=== PATIENT | female | born 1980 | race Caucasian/White ===

== ENCOUNTER 2016-08-27 09:54 | Emergency (ER) ==
[2016-08-27 10:02] VITALS: BP 134/84; TEMP 98.9; BMI 31.7
[2016-08-27] MEDS ORDERED: MOTRIN PO STA (10:13)
--- NOTE | 2016-08-27 10:14 | ED.PDOC ---
General ED Provider: Dr. ROJAS CEJA Chief Complaint: Ankle Pain/Injury Stated Complaint: patient state that while she was on steps yelling at dog she slipped falling and injuring her ankle. she is not able to bear weight. Time Seen by Physician: 10:13 Mode of Arrival: Wheelchair Information Source: Patient Exam Limitations: No limitations Primary Care Provider: ASHANTI PICKENS Nursing and Triage Documentation Reviewed and Agree: Yes Musculoskeletal Complaint Exam - Ankle/Foot Complaint/Exam Location of Injury: Reports: Right, Ankle Mechanism of Injury: Reports: Trauma (twisting injury ) Onset/Duration: just prior to arrival Symptoms Are: Reports: Still present Onset of Pain: Reports: Immediate Initial Severity: Severe Current Severity: Severe Location: Reports: Discrete (right Lateral malleolus ) Character: Reports: Aching, Throbbing Alleviating: Reports: None Aggravating: Reports: Movement, Weight bearing, Prolonged standing Able to Bear Weight: No Associated Signs and Symptoms: Reports: Swelling Gout Risk Factors: Reports: None Related Surgical History: Reports: None Lower Extremity Findings: Present: Swelling Achilles Tendon Abnormality: No Tenderness: Present: Lateral malleolus. Absent: Heel, Achilles insertion, Midfoot Limited Range of Motion: Present: Inversion, Eversion, Dorsiflexion, Plantarflexion Ankle/Foot Picture: 1 - Tenderness with swelling Differential Diagnosis: Closed Fracture, Sprain, Strain Review of Systems - Review Of Systems Constitutional: Reports: No symptoms Eyes: Reports: No symptoms Ears, Nose, Mouth, Throat: Reports: No symptoms Respiratory: Reports: No symptoms Cardiac: Reports: No symptoms GI: Reports: No symptoms : Reports: No symptoms Musculoskeletal: Reports: Joint pain, Joint swelling Skin: Reports: No symptoms Neurological: Reports: Anxiety Endocrine: Reports: No symptoms Hematologic/Lymphatic: Reports: No symptoms All Other Systems: Reviewed and Negative Past Medical History - Past Medical History Endocrine: Reports: Unknown Cardiovascular: Reports: Unknown Respiratory: Reports: Unknown Hematological: Reports: Unknown Gastrointestinal: Reports: Unknown Genitourinary: Reports: Unknown Neuro/Psych: Reports: Unknown Musculoskeletal: Reports: Unknown Cancer: Reports: Unknown Last Menstrual Period: april 2016 - Surgical History General Surgical History: Reports: Unknown - Family History Family History: Reports: Unknown - Social History Smoking Status: Former smoker Hx Substance Use: No Alcohol Screening: None Physical Exam - Physical Exam Appearance: Ill-appearing Ill-appearing: Mild Pain Distress: Severe Eyes: ANNE MARIE, EOMI, Conjunctiva clear ENT: Ears normal, Nose normal, Oropharynx normal Neck: Supple Respiratory: Airway patent, Breath sounds clear, Breath sounds equal, Respirations nonlabored Cardiovascular: RRR, Pulses normal, No rub, No murmur GI/: Soft, Nontender, No masses, Bowel sounds normal, No Organomegaly Musculoskeletal: Normal strength, ROM intact, No edema, No calf tenderness Skin: Warm Neurological: Sensation intact, Motor intact, Reflexes intact, Cranial nerves intact, Alert, Oriented Psychiatric: Anxious Interpretation - Radiology Interpretation Radiology Interpretation By: Radiologist Radiology Results: Positive (Right mildly displaced distal fibular fracture) Exam Interpreted: Other (right ankle ) Critical Care Note - Critical Care Note Total Time (mins): 0 Course - Course Orders, Labs, Meds: Orders Category Date Time Status CRUTCHES [ED CRUTCHES] .ONCE EMERGENCY 08/27/16 10:53 Active ED YESICA WRAP .ONCE EMERGENCY 08/27/16 10:53 Active Ibuprofen [Motrin] MEDS 08/27/16 10:13 Discontinued 800 mg PO ONCE STA ANKLE, RIGHT MIN 3 VIEWS Stat RADS 08/27/16 10:13 Completed Medications Discontinued Medications Generic Name Dose Route Start Last Admin Trade Name Freq PRN Reason Stop Dose Admin Ibuprofen 800 mg 08/27/16 10:13 08/27/16 10:31 Motrin PO 08/27/16 10:14 800 mg ONCE STA Administration Vital Signs: Temp Pulse Resp BP Pulse Ox 08/27/16 09:54 98.9 F 102 H 18 134/84 98 Departure - Departure Time of Disposition: 10:43 Disposition: HOME SELF-CARE Discharge Problem: Closed right fibular fracture Instructions: Ankle Fracture (ED) Condition: Fair Pt referred to PMD for follow-up: Yes Additional Instructions: Follow up with Orthopedics next week Take medications as prescribed No weight bearing on the right ankle Use air cast until seen by your PCP Prescriptions: Hydrocodone/Acetaminophen [[place] 5-325 Tablet] 1 tab PO Q6HR PRN #20 tablet PRN Reason: PAIN Ibuprofen [Motrin] 600 mg PO Q6H PRN #30 tablet PRN Reason: Analgesia Allergies/Adverse Reactions: Allergies azithromycin Adverse Reaction (Verified 08/27/16 09:59) Rash codeine Adverse Reaction (Verified 08/27/16 09:59) Vomiting Latex, Natural Rubber Adverse Reaction (Verified 08/27/16 09:59) Difficulty Breathing If prolonged, states "has trouble breathing". If short period, gets a rash. Home Medications: Ambulatory Orders Lisinopril 10 mg PO DAILY 07/27/16 Pantoprazole Sodium [Protonix] 40 mg PO DAILY #30 tablet. 08/01/16 Hydrocodone/Acetaminophen [[place] 5-325 Tablet] 1 tab PO Q6HR PRN #20 tablet Ibuprofen [Motrin] 600 mg PO Q6H PRN #30 tablet 08/27/16 Disposition Discussed With: Patient, Family
--- NOTE | 2016-08-27 10:31 | DI ---
EXAM: Three views of the right ankle. History: Right ankle trauma and swelling. Findings: Mildly displaced oblique fracture through the distal right fibular shaft near the joint l ine. No dislocation. Ankle mortise does appear to be intact. Joint spaces are preserved. There i s an ankle joint effusion. Impression: Mildly displaced distal right fibular fracture.
== END 2016-08-27 11:07 | disposition home or self-care (01) ==
LOC: ED 09:54
DX: S82.831A Other fracture of upper and lower end of right fibula, initial encounter for closed fracture (principal); W10.9XXA Fall (on) (from) unspecified stairs and steps, initial encounter
CPT/HCPCS: 99283

== ENCOUNTER 2016-10-29 05:08 | Emergency (ER) ==
[2016-10-29 05:24] VITALS: BMI 30.5
[2016-10-29] MEDS ORDERED: ZOFRAN 4 MG/2 ML IVP STA (05:28)
[2016-10-29] MEDS ORDERED: SODIUM CHLORIDE 1,000 ML IV STA ×2 (05:28→06:54)
[2016-10-29] MEDS ORDERED: DEMEROL 25 MG/ML SYRINGE IVP STA (05:28)
--- NOTE | 2016-10-29 05:32 | ED.PDOC ---
General Stated Complaint: hurting for couple days, got worsetoday morning, had 1 episode of vomiting. patient was in hospital july for the Pancreatitis. Patient was taking Bactrim for the rt leg infection. Time Seen by Physician: 05:30 Mode of Arrival: Walk-In Information Source: Patient Nursing and Triage Documentation Reviewed and Agree: Yes <DEEDEE HATCH - Last Filed: 10/29/16 06:55> <MILLIE KENT - Last Filed: 10/29/16 07:20> ED Provider: Dr. MILLIE KENT Chief Complaint: Abdominal Pain Primary Care Provider: ASHANTI PICKENS GI Complaint Exam - Abdominal Pain Complaint/Exam Onset: Gradual Symptoms Are: Still present Timing: Constant Initial Severity: Severe Current Severity: Severe Location of Pain: Discrete Character: Reports: Aching, Throbbing Aggravating: Reports: Movement, Food Alleviating: Reports: None Associated Signs and Symptoms: Reports: Nausea, Vomiting, Decreased activity. Denies: Diaphoresis, Fever, Cough, Chest pain, Dizziness, Back pain, Constipation, Blood in stool, Dysuria, Urinary frequency, Decreased urine output , Decreased appetite, Vaginal bleeding, Vaginal discharge, Diarrhea, Sore throat Related History: Reports: Similar episode AAA Risk Factors: Reports: None Cardiac Risk Factors: Reports: None Ectopic Risk Factors: Reports: None Ovarian Torsion Risk Factors: Reports: None Surgical Obstruction Risk Factors: Reports: None Related Surgical History: Reports: None Abdominal Findings: Absent: Pulsatile mass, Abdominal distention, Unequal femoral pulses Differential Diagnoses: Hepatitis, Pancreatitis, GB, PUD <DEEDEE HATCH - Last Filed: 10/29/16 06:55> Review of Systems - Review Of Systems Constitutional: Reports: Malaise, Weakness Eyes: Reports: No symptoms Ears, Nose, Mouth, Throat: Reports: No symptoms Respiratory: Reports: No symptoms Cardiac: Reports: No symptoms GI: Reports: Abdominal pain, Vomiting : Reports: No symptoms Musculoskeletal: Reports: No symptoms Skin: Reports: No symptoms Neurological: Reports: No symptoms Endocrine: Reports: No symptoms Hematologic/Lymphatic: Reports: No symptoms All Other Systems: Reviewed and Negative <DEEDEE HATCH - Last Filed: 10/29/16 06:55> Past Medical History - Past Medical History Previously Healthy: No Endocrine: Reports: None Cardiovascular: Reports: Hypertension Respiratory: Reports: None Hematological: Reports: None Gastrointestinal: Reports: Pancreatitis Genitourinary: Reports: None Neuro/Psych: Reports: None Musculoskeletal: Reports: None Cancer: Reports: None Last Menstrual Period: end August, - Surgical History General Surgical History: Reports: Tubal ligation, Orthopedic (rt leg surgery), Other (cyst removed from the left breast.) - Family History Family History: Reports: Unknown - Social History Smoking Status: Former smoker Hx Substance Use: No Alcohol Screening: None - Immunizations Tetanus Shot up to Date: Yes <DEEDEE HATCH - Last Filed: 10/29/16 06:55> Physical Exam - Physical Exam Appearance: Ill-appearing, Obese Ill-appearing: Moderate Pain Distress: Severe Eyes: ANNE MARIE, EOMI, Conjunctiva clear ENT: Ears normal, Nose normal, Oropharynx normal Respiratory: Airway patent, Breath sounds clear, Breath sounds equal, Respirations nonlabored Cardiovascular: RRR, Pulses normal, No rub, No murmur GI/: Tender, Bowel sounds hypoactive Musculoskeletal: Normal strength, ROM intact, No edema, No calf tenderness Skin: Warm, Dry, Normal color Neurological: Sensation intact, Motor intact, Reflexes intact, Cranial nerves intact, Alert, Oriented Psychiatric: Affect appropriate, Mood appropriate <DEEDEE HATCH - Last Filed: 10/29/16 06:55> Physician Notification - Case Discussed Physician Notified: pmd Time of Notification: 07:19 (transfer to [facility]) <MILLIE KENT - Last Filed: 10/29/16 07:20> Critical Care Note - Critical Care Note Total Time (mins): 0 <DEEDEE HATCH - Last Filed: 10/29/16 06:55> Course - Course Hematology/Chemistry: 10/29/16 05:45 10/29/16 05:45 <DEEDEE HATCH - Last Filed: 10/29/16 06:55> - Course Hematology/Chemistry: 10/29/16 05:45 10/29/16 05:45 <MILLIE KENT - Last Filed: 10/29/16 07:20> - Course Orders, Labs, Meds: Lab Review 10/29/16 05:45 WBC 9.36 RBC 4.55 Hgb 14.9 Hct 42.6 MCV 93.6 MCH 32.7 H MCHC 35.0 RDW Coeff of Tonya 15.8 H Plt Count 243 Immature Gran % (Auto) 0.3 Neut % (Auto) 84.3 Lymph % (Auto) 12.0 [place] % (Auto) 2.6 Eos % (Auto) 0.5 Baso % (Auto) 0.3 Immature Gran # (Auto) 0.0 Neut # 7.9 H Lymph # 1.1 [place] # 0.2 L Eos # 0.1 Baso # 0.0 Sodium 136 Potassium 4.5 Chloride 101 Carbon Dioxide 20 L Anion Gap 19.5 BUN 18 Creatinine 2.21 H Estimated GFR (MDRD) 25.00 BUN/Creatinine Ratio 8.14 Glucose 121 H Calcium 9.1 Total Bilirubin 0.92 AST 51 H ALT 24 Alkaline Phosphatase 146 H Total Protein 7.5 Albumin 4.0 Globulin 3.5 Albumin/Globulin Ratio 1.14 Amylase 356 H Lipase 734 H Serum , Qual Negative Plasma/Serum Alcohol < 10.0 Orders Category Date Time Status ED IV/MEDIPORT/POWERPORT .ONCE EMERGENCY 10/29/16 05:28 Active AMYLASE Stat LAB 10/29/16 05:45 Completed BLOOD ALCOHOL Stat LAB 10/29/16 05:45 Completed CBC W/ AUTO DIFF Stat LAB 10/29/16 05:45 Completed COMPREHENSIVE METABOLIC PANEL Stat LAB 10/29/16 05:45 Completed LIPASE Stat LAB 10/29/16 05:45 Completed SERUM Stat LAB 10/29/16 05:45 Completed URINALYSIS C & S IF INDICATED Stat LAB 10/29/16 05:28 Uncollected URINE DRUG SCREEN (RAPID FOR ED) [DRUG SCREEN, URINE, LAB 10/29/16 05:38 Uncollected RAPID] Stat 0.9 % Sodium Chloride [Saline Flush] MEDS 10/29/16 05:28 Active 1 syr IVF PRN PRN Hydromorphone HCl/Pf [Dilaudid 2 mg/ml Syringe] MEDS 10/29/16 06:54 Discontinued 2 mg IVP ONCE STA Meperidine HCl/Pf [Demerol 25 mg/ml Syringe] MEDS 10/29/16 05:28 Discontinued 25 mg IVP ONCE STA Ondansetron HCl/Pf [Zofran 4 mg/2 ml] MEDS 10/29/16 05:28 Discontinued 4 mg IVP ONCE STA Sodium Chloride 0.9% [Sodium Chloride] 1,000 ml MEDS 10/29/16 06:54 Active IV 125 mls/hr Sodium Chloride 0.9% [Sodium Chloride] 1,000 ml MEDS 10/29/16 05:[address] ABDOMEN/PELVIS WO CONTRAST Stat RADS 10/29/16 05:28 Completed Medications Generic Name Dose Route Start Last Admin Trade Name Freq PRN Reason Stop Dose Admin Sodium Chloride 1,000 mls @ 125 mls/hr 10/29/16 06:54 10/29/16 07:02 Sodium Chloride IV 10/29/16 14:53 125 mls/hr .Q8H STA Administration Sodium Chloride 1 syr 10/29/16 05:28 10/29/16 05:52 Saline Flush IVF 1 syr PRN PRN Administration To flush IV Discontinued Medications Generic Name Dose Route Start Last Admin Trade Name Freq PRN Reason Stop Dose Admin Hydromorphone HCl 2 mg 10/29/16 06:54 10/29/16 07:06 Dilaudid 2 Mg/Ml Syringe IVP 10/29/16 06:55 2 mg ONCE STA Administration Sodium Chloride 1,000 mls @ 1,000 mls/hr 10/29/16 05:28 10/29/16 05:46 Sodium Chloride IV 10/29/16 06:27 1,000 mls/hr BOLUS STA Administration Meperidine HCl 25 mg 10/29/16 05:28 10/29/16 05:48 Demerol 25 Mg/Ml Syringe IVP 10/29/16 05:29 25 mg ONCE STA Administration Ondansetron HCl 4 mg 10/29/16 05:28 10/29/16 05:47 Zofran 4 Mg/2 Ml IVP 10/29/16 05:29 4 mg ONCE STA Administration Vital Signs: Temp Pulse Resp BP Pulse Ox 10/29/16 05:38 97.4 F L 81 22 112/80 100 10/29/16 05:35 98/60 10/29/16 05:10 98.5 F 106 H 20 88/61 L 97 Departure - Departure Pt referred to PMD for follow-up: Yes Disposition Discussed With: Patient, Family <DEEDEE HATCH - Last Filed: 10/29/16 06:55> - Departure Time of Disposition: 07:19 Pt referred to PMD for follow-up: Yes Disposition Discussed With: Patient, Family <MILLIE KENT - Last Filed: 10/29/16 07:20> - Departure Disposition: TSF SHORT-TRM HOSP Discharge Problem: Pancreatitis Qualifiers: Chronicity: acute Pancreatitis type: other Acute pancreatitis complication: uninfected necrosis Qualifier Code: (K85.81) Other acute pancreatitis with uninfected necrosis Instructions: Pancreatitis (ED) Condition: Stable Allergies/Adverse Reactions: Allergies azithromycin Adverse Reaction (Verified 10/29/16 05:24) Rash codeine Adverse Reaction (Verified 10/29/16 05:24) Vomiting Latex, Natural Rubber Adverse Reaction (Verified 10/29/16 05:24) Difficulty Breathing If prolonged, states "has trouble breathing". If short period, gets a rash. Home Medications: Ambulatory Orders Lisinopril 10 mg PO DAILY 07/27/16
[2016-10-29 05:51] LABS: BASOPHILS % (AUTO) 0.3 % (0.0-3.0); EOSINOPHILS # (AUTO) 0.1 K/ul (0.0-0.7); EOSINOPHILS % (AUTO) 0.5 % (0.0-7.0); HEMATOCRIT 42.6 % (37.0-47.0); HEMOGLOBIN 14.9 g/dl (12.0-16.0); IMMATURE GRANULOCYTE % (AUTO) 0.3 % (0.0-5.0); LYMPHOCYTES # (AUTO) 1.1 K/uL (0.60-3.4); MEAN CORPUSCULAR HEMOGLOBIN 32.7 pg (27.0-31.0); MEAN CORPUSCULAR VOLUME 93.6 fl (81.0-99.0); MONOCYTES # (AUTO) 0.2 K/uL (0.4-2.0); MONOCYTES % (AUTO) 2.6 (0-10); NEUTROPHILS # (AUTO) 7.9 K/ul (2.0-6.9); NEUTROPHILS % (AUTO) 84.3; PLATELET COUNT 243 10^3/uL (140-440); RED BLOOD COUNT 4.55 10^6/ul (4.20-5.40); WHITE BLOOD COUNT 9.36 K/ul (4.6-10.2)
[2016-10-29 06:19] LABS: SERUM PREGNANCY INTERNAL QC INTERNAL QC VALID
[2016-10-29 06:32] LABS: ALBUMIN/GLOBULIN RATIO 1.14; ANION GAP 19.5; BILIRUBIN,TOTAL 0.92 mg/dL (0.00-1.20); BUN/CREATININE RATIO 8.14; CALCIUM 9.1 mg/dL (8.2-10.2); CREATININE 2.21 mg/dL (0.60-1.30); POTASSIUM 4.5 mmol/L (3.5-5.10); TOTAL PROTEIN 7.5 g/dL (6.4-8.2)
[2016-10-29] MEDS ORDERED: DILAUDID 2 MG/ML SYRINGE IVP STA (06:54)
--- NOTE | 2016-10-29 06:59 | CT ---
Exam: CT of the abdomen and pelvis without contrast History: Abdominal pain with prior pancreatitis Technique: [address] of the abdomen and pelvis without intravascular contrast FINDINGS: Prior study not available for comparison. Left lower lobe granulomatous calcification. The lung bases are clear otherwise. The liver density slightly decreased measuring 36 HU. The gall bladder appears normal. Mild peripancreatic inflammation with mild retroperitoneal fluid mostly on the left. The spleen and adrenal glands appear normal. Kidneys and proximal collecting system are u nremarkable. The appendix is normal. Bowel loops demonstrate normal caliber. Vascular structures [place] ear normal by noncontrast CT.. Pelvic genitourinary structures appear normal. Pelvic bowel loops are unremarkable. No inflammatory change in the pelvic fat. No acute abnormality of the abdominal or pelvic skeleton. Impression: 1. Peripancreatic inflammation and small retroperitoneal fluid consistent acute pancreatitis. Infl ammatory changes are generally mild at this time. There is no pseudocyst. 2. Liver steatosis
[2016-10-29 07:05] VITALS: BP 112/80; TEMP 97.4
[2016-10-29] MEDS ORDERED: DILAUDID 1 MG/ML SYRINGE IVP STA (07:23)
== END 2016-10-29 08:10 | disposition short-term general hospital (02) ==
LOC: ED 05:08
DX: K85.81 Other acute pancreatitis with uninfected necrosis (principal)
CPT/HCPCS: 36415; 80053; 80307; 82150; 83690; 84703; 85025; 96361; 96374; 96375; 99285

== ENCOUNTER 2016-10-29 08:14 | Outpatient (CLI) ==
[2016-10-29 05:24] VITALS: BMI 30.5
== END 2016-10-29 08:15 ==
LOC: AMBL 08:14
PROVIDERS: ATTEND Internal Medicine
DX: K85.90 Acute pancreatitis without necrosis or infection, unspecified (principal)

== ENCOUNTER 2016-12-16 14:53 | Outpatient (CLI) ==
[2016-12-16 17:34] LABS: BASOPHILS % (AUTO) 0.8 % (0.0-3.0); EOSINOPHILS # (AUTO) 0.4 K/ul (0.0-0.7); EOSINOPHILS % (AUTO) 7.9 % (0.0-7.0); HEMATOCRIT 41.3 % (37.0-47.0); HEMOGLOBIN 14.1 g/dl (12.0-16.0); IMMATURE GRANULOCYTE % (AUTO) 0.2 % (0.0-5.0); LYMPHOCYTES # (AUTO) 1.8 K/uL (0.60-3.4); LYMPHOCYTES % (AUTO) 34.8 (10.0-50.0); MEAN CORPUSCULAR HEMOGLOBIN 33.7 pg (27.0-31.0); MEAN CORPUSCULAR HGB CONC 34.1 (31.8-35.4); MEAN CORPUSCULAR VOLUME 98.6 fl (81.0-99.0); MONOCYTES # (AUTO) 0.2 K/uL (0.4-2.0); MONOCYTES % (AUTO) 4.5 (0-10); NEUTROPHILS # (AUTO) 2.6 K/ul (2.0-6.9); NEUTROPHILS % (AUTO) 51.8; PLATELET COUNT 267 10^3/uL (140-440); RED BLOOD COUNT 4.19 10^6/ul (4.20-5.40); WHITE BLOOD COUNT 5.09 K/ul (4.6-10.2)
[2016-12-16 17:54] LABS: ALBUMIN 3.6 g/dL (3.4-5.0); ALBUMIN/GLOBULIN RATIO 0.9; ANION GAP 15.8; BILIRUBIN,TOTAL 0.71 mg/dL (0.00-1.20); BUN/CREATININE RATIO 7.14; CALCIUM 8.6 mg/dL (8.2-10.2); CHOL/HDL RATIO 3.6 (4.5-5.5); CREATININE 0.7 mg/dL (0.60-1.30); POTASSIUM 3.8 mmol/L (3.5-5.10); TOTAL PROTEIN 7.6 g/dL (6.4-8.2)
== END 2016-12-16 14:54 | disposition home or self-care (01) ==
LOC: LAB 14:53
PROVIDERS: ATTEND Nurse Practitioner Family
DX: Z00.00 Encounter for general adult medical examination without abnormal findings (principal)
CPT/HCPCS: 36415; 80053; 80061; 82150; 83036; 83690; 85025

== ENCOUNTER 2016-12-23 10:21 | Outpatient (CLI) | END 2016-12-23 10:22 | disposition home or self-care (01) | LOC: LAB 10:21 | PROVIDERS: ATTEND Nurse Practitioner Family | DX: R74.8 Abnormal levels of other serum enzymes (principal) | CPT/HCPCS: 36415; 80074 ==

== ENCOUNTER 2017-02-02 02:40 | Inpatient (IN) ==
[2017-02-02] MEDS ORDERED: ZOFRAN 4 MG/2 ML IM STA (03:21)
[2017-02-02] MEDS ORDERED: DEMEROL 25 MG/ML SYRINGE IM STA (03:21)
--- NOTE | 2017-02-02 03:24 | ED.PDOC ---
General ED Provider: Dr. DEEDEE HATCH Chief Complaint: Abdominal Pain Stated Complaint: Been hurting in the upper belly, had h/o pancreatitis , nausea no vomitings. not drinking ETOH lately. Time Seen by Physician: 03:22 Mode of Arrival: Walk-In Information Source: Patient Primary Care Provider: ASHANTI PICKENS Nursing and Triage Documentation Reviewed and Agree: Yes GI Complaint Exam - Abdominal Pain Complaint/Exam Onset: Gradual Symptoms Are: Still present Timing: Constant Initial Severity: Moderate Current Severity: Severe Location of Pain: Epigastric Radiates To: Reports: Back Character: Reports: Dull, Aching Aggravating: Reports: Movement, Food Alleviating: Reports: None Associated Signs and Symptoms: Reports: Nausea. Denies: Diaphoresis, Fever, Cough, Chest pain, Dizziness, Back pain, Constipation, Blood in stool, Dysuria, Urinary frequency, Decreased urine output, Decreased appetite, Vaginal bleeding , Vaginal discharge, Vomiting, Diarrhea, Sore throat, Decreased activity Related History: Reports: Similar episode AAA Risk Factors: Reports: None Cardiac Risk Factors: Reports: None Ectopic Risk Factors: Reports: None Abdominal Findings: Absent: Pulsatile mass, Abdominal distention, Unequal femoral pulses, Rebound tenderness, Peritoneal signs Differential Diagnoses: Pancreatitis, PUD Review of Systems - Review Of Systems Constitutional: Reports: Malaise, Weakness Eyes: Reports: No symptoms Ears, Nose, Mouth, Throat: Reports: No symptoms Respiratory: Reports: No symptoms Cardiac: Reports: No symptoms GI: Reports: Abdomen distended, Abdominal pain : Reports: No symptoms Musculoskeletal: Reports: No symptoms Skin: Reports: No symptoms Neurological: Reports: No symptoms Endocrine: Reports: No symptoms Hematologic/Lymphatic: Reports: No symptoms All Other Systems: Reviewed and Negative Past Medical History - Past Medical History Previously Healthy: No Endocrine: Reports: None Cardiovascular: Reports: Hypertension Respiratory: Reports: None Hematological: Reports: None Gastrointestinal: Reports: Pancreatitis Genitourinary: Reports: None Neuro/Psych: Reports: None Musculoskeletal: Reports: None Cancer: Reports: None Last Menstrual Period: IRREGULAR - Surgical History General Surgical History: Reports: Tubal ligation, Orthopedic (rt leg surgery), Other (cyst removed from the left breast.) - Family History Family History: Reports: Unknown - Social History Smoking Status: Former smoker Hx Substance Use: No Alcohol Screening: None - Immunizations Tetanus Shot up to Date: No Physical Exam - Physical Exam Appearance: Ill-appearing, Obese Pain Distress: Severe Eyes: ANNE MARIE, EOMI, Conjunctiva clear ENT: Ears normal, Nose normal, Oropharynx normal Respiratory: Airway patent, Breath sounds clear, Breath sounds equal, Respirations nonlabored Cardiovascular: RRR, Pulses normal, No rub, No murmur GI/: Soft, Tender, Bowel sounds hypoactive Musculoskeletal: Normal strength, ROM intact, No edema, No calf tenderness Skin: Warm, Dry, Normal color Neurological: Sensation intact, Motor intact, Reflexes intact, Cranial nerves intact, Alert, Oriented Psychiatric: Affect appropriate, Mood appropriate Physician Notification - Case Discussed Time of Notification: 05:55 (Dr Carcamo) Critical Care Note - Critical Care Note Total Time (mins): 0 Course - Course Hematology/Chemistry: 02/02/17 03:25 02/02/17 03:25 Orders, Labs, Meds: Lab Review 02/02/17 03:25 WBC 8.02 RBC 4.49 Hgb 14.7 Hct 42.6 MCV 94.9 MCH 32.7 H MCHC 34.5 RDW Coeff of Tonya 13.8 Plt Count 190 Immature Gran % (Auto) 0.2 Neut % (Auto) 67.1 Lymph % (Auto) 17.7 [place] % (Auto) 7.9 Eos % (Auto) 6.6 Baso % (Auto) 0.5 Immature Gran # (Auto) 0.0 Neut # 5.4 Lymph # 1.4 [place] # 0.6 Eos # 0.5 Baso # 0.0 Sodium 142 Potassium 3.7 Chloride 105 Carbon Dioxide 27 Anion Gap 13.7 BUN 7 Creatinine 0.64 Estimated GFR (MDRD) 105.00 BUN/Creatinine Ratio 10.93 Glucose 114 H Calcium 8.2 Total Bilirubin 0.80 AST 61 H ALT 39 Alkaline Phosphatase 131 H Total Protein 5.7 L Albumin 3.0 L Globulin 2.7 Albumin/Globulin Ratio 1.11 Amylase 183 H Lipase 434 H Serum , Qual Negative Orders Category Date Time Status ED IV/MEDIPORT/POWERPORT .ONCE EMERGENCY 02/02/17 04:06 Active AMYLASE Stat LAB 02/02/17 03:25 Completed CBC W/ AUTO DIFF Stat LAB 02/02/17 03:25 Completed COMPREHENSIVE METABOLIC PANEL Stat LAB 02/02/17 03:25 Completed LIPASE Stat LAB 02/02/17 03:25 Completed SERUM Stat LAB 02/02/17 03:25 Completed 0.9 % Sodium Chloride [Saline Flush] MEDS 02/02/17 04:06 Ordered 1 syr IVF PRN PRN Meperidine HCl/Pf [Demerol 25 mg/ml Syringe] MEDS 02/02/17 03:21 Discontinued 25 mg IM ONCE STA Ondansetron HCl/Pf [Zofran 4 mg/2 ml] MEDS 02/02/17 03:21 Discontinued 4 mg IM ONCE STA Sodium Chloride 0.9% [Sodium Chloride] 1,000 ml MEDS 02/02/17 04:06 Active IV 100 mls/hr Vitamin B-1 Inj [Thiamine] MEDS 02/02/17 04:07 Discontinued 100 [address] IVP ONCE STA CT ABDOMEN/PELVIS WO CONTRAST Stat RADS 02/02/17 03:21 Completed Medications Generic Name Dose Route Start Last Admin Trade Name Freq PRN Reason Stop Dose Admin Sodium Chloride 1,000 mls @ 100 mls/hr 02/02/17 04:06 02/02/17 04:29 Sodium Chloride IV 02/02/17 14:05 100 mls/hr .Q10H STA Administration Sodium Chloride 1 syr 02/02/17 04:06 Saline Flush IVF PRN PRN To flush IV Discontinued Medications Generic Name Dose Route Start Last Admin Trade Name Freq PRN Reason Stop Dose Admin Meperidine HCl 25 mg 02/02/17 03:21 02/02/17 03:40 Demerol 25 Mg/Ml Syringe IM 02/02/17 03:22 25 mg ONCE STA Administration Ondansetron HCl 4 mg 02/02/17 03:21 02/02/17 03:40 Zofran 4 Mg/2 Ml IM 02/02/17 03:22 4 mg ONCE STA Administration Thiamine HCl 100 mg 02/02/17 04:07 02/02/17 04:30 Thiamine IVP 02/02/17 04:08 100 mg ONCE STA Administration Vital Signs: Temp Pulse Resp BP Pulse Ox 02/02/17 02:41 98.2 F 90 18 154/118 H 100 Departure - Departure Time of Disposition: 05:55 Disposition: ADMITTED INPATIENT Discharge Problem: Abdominal pain Pancreatitis Qualifiers: Chronicity: acute Pancreatitis type: alcohol induced Acute pancreatitis complication: no infection or necrosis Qualifier Code: (K85.20) Alcohol induced acute pancreatitis without necrosis or infection Instructions: Acute Abdominal Pain (ED) Condition: Stable Pt referred to PMD for follow-up: Yes Additional Instructions: SOFT FOOD FOR COUPLE DAYS, INCREASE HYDRATION. PROBIOTICS NEEDS F/U WITH GI. Allergies/Adverse Reactions: Allergies azithromycin Adverse Reaction (Verified 02/02/17 02:46) Rash codeine Adverse Reaction (Verified 02/02/17 02:46) Vomiting Latex, Natural Rubber Adverse Reaction (Verified 02/02/17 02:46) Difficulty Breathing If prolonged, states "has trouble breathing". If short period, gets a rash. Home Medications: Ambulatory Orders Lisinopril 10 mg PO DAILY 07/27/16 Clonidine HCl 0.1 mg PO PRN 12/16/16 Lipase/Protease/Amylase [Creon Dr 24,000 Units Capsule] 2 each PO BID 12/16/16 Ondansetron HCl [Zofran] 4 mg PO PRN 12/16/16 Pantoprazole Sodium 40 mg PO d 12/16/16 Disposition Discussed With: Patient, Family
[2017-02-02 03:32] LABS: BASOPHILS % (AUTO) 0.5 % (0.0-3.0); EOSINOPHILS # (AUTO) 0.5 K/ul (0.0-0.7); EOSINOPHILS % (AUTO) 6.6 % (0.0-7.0); HEMATOCRIT 42.6 % (37.0-47.0); HEMOGLOBIN 14.7 g/dl (12.0-16.0); IMMATURE GRANULOCYTE % (AUTO) 0.2 % (0.0-5.0); LYMPHOCYTES # (AUTO) 1.4 K/uL (0.60-3.4); LYMPHOCYTES % (AUTO) 17.7 (10.0-50.0); MEAN CORPUSCULAR HEMOGLOBIN 32.7 pg (27.0-31.0); MEAN CORPUSCULAR HGB CONC 34.5 (31.8-35.4); MEAN CORPUSCULAR VOLUME 94.9 fl (81.0-99.0); MONOCYTES # (AUTO) 0.6 K/uL (0.4-2.0); MONOCYTES % (AUTO) 7.9 (0-10); NEUTROPHILS # (AUTO) 5.4 K/ul (2.0-6.9); NEUTROPHILS % (AUTO) 67.1; PLATELET COUNT 190 10^3/uL (140-440); RED BLOOD COUNT 4.49 10^6/ul (4.20-5.40); WHITE BLOOD COUNT 8.02 K/ul (4.6-10.2)
[2017-02-02 03:47] LABS: SERUM PREGNANCY INTERNAL QC INTERNAL QC VALID
[2017-02-02 03:51] LABS: ALBUMIN/GLOBULIN RATIO 1.11; ANION GAP 13.7; BILIRUBIN,TOTAL 0.8 mg/dL (0.00-1.20); BUN/CREATININE RATIO 10.93; CALCIUM 8.2 mg/dL (8.2-10.2); CREATININE 0.64 mg/dL (0.60-1.30); POTASSIUM 3.7 mmol/L (3.5-5.10); TOTAL PROTEIN 5.7 g/dL (6.4-8.2)
[2017-02-02] MEDS ORDERED: SODIUM CHLORIDE 1,000 ML IV STA (04:06)
[2017-02-02] MEDS ORDERED: THIAMINE IVP STA (04:07)
--- NOTE | 2017-02-02 04:25 | CT ---
EXAM: CT scan abdomen pelvis without contrast HISTORY: Abdominal pain with nausea and vomiting COMPARISON: CT scan abdomen pelvis 10/29/2016 FINDINGS: Contiguous axial images obtained through the abdomen pelvis without contrast utilizing 3-m m collimation. Sagittal and coronal reconstructions were imaged and reviewed.. Benign granulomatou s changes of the left lung base. Fatty infiltration is noted throughout the liver.. Gallbladder is fluid filled without cholelithiasis Extensive peripancreatic inflammatory changes are noted with r etro mesenteric fluid left greater than right compatible with pancreatitis The abdominal aorta is n ormal in course and caliber. The spleen, kidneys and adrenal glands are unremarkable. There is no evidence of free fluid.. Follicles are seen in the left ovary. There is a normal appendix. Bone wi ndows reveals no evidence of lytic or blastic lesions. There is umbilical hernia containing only fa t. IMPRESSION: Findings consistent with diffuse pancreatitis.. Fatty liver. Small umbilical hernia containing only fat. Normal appendix.
[2017-02-02] MEDS ORDERED: TYLENOL PO PRN (05:56)
[2017-02-02] MEDS ORDERED: DEMEROL 25 MG/ML SYRINGE IVP SCH (06:00)
[2017-02-02] MEDS ORDERED: LIBRIUM PO SCH (06:00)
[2017-02-02 06:12] LABS: BASOPHILS % (AUTO) 0.2 % (0.0-3.0); EOSINOPHILS # (AUTO) 0.6 K/ul (0.0-0.7); EOSINOPHILS % (AUTO) 5.6 % (0.0-7.0); HEMATOCRIT 43.2 % (37.0-47.0); HEMOGLOBIN 14.8 g/dl (12.0-16.0); IMMATURE GRANULOCYTE % (AUTO) 0.4 % (0.0-5.0); LYMPHOCYTES # (AUTO) 1.6 K/uL (0.60-3.4); LYMPHOCYTES % (AUTO) 16.2 (10.0-50.0); MEAN CORPUSCULAR HEMOGLOBIN 32.7 pg (27.0-31.0); MEAN CORPUSCULAR HGB CONC 34.3 (31.8-35.4); MEAN CORPUSCULAR VOLUME 95.6 fl (81.0-99.0); MONOCYTES # (AUTO) 0.7 K/uL (0.4-2.0); MONOCYTES % (AUTO) 6.9 (0-10); NEUTROPHILS # (AUTO) 7.1 K/ul (2.0-6.9); NEUTROPHILS % (AUTO) 70.7; PLATELET COUNT 202 10^3/uL (140-440); RED BLOOD COUNT 4.52 10^6/ul (4.20-5.40)
[2017-02-02] MEDS: ZOFRAN 4 MG/2 ML IVP SCH ×3 (06:15→19:17)
[2017-02-02 06:32] LABS: ALBUMIN 3.2 g/dL (3.4-5.0); ALBUMIN/GLOBULIN RATIO 1.07; ANION GAP 15.8; BILIRUBIN,TOTAL 0.94 mg/dL (0.00-1.20); BUN/CREATININE RATIO 10.29; CALCIUM 8.3 mg/dL (8.2-10.2); CREATININE 0.68 mg/dL (0.60-1.30); POTASSIUM 3.8 mmol/L (3.5-5.10); TOTAL PROTEIN 6.2 g/dL (6.4-8.2)
[2017-02-02 06:37] VITALS: BMI 31.9
[2017-02-02] MEDS: SODIUM CHLORIDE 1,000 ML IV SCH ×2 (06:39→17:52)
[2017-02-02] MEDS ORDERED: CATAPRES PO SCH (08:30)
[2017-02-02] MEDS ORDERED: CATAPRES PO PRN (08:38)
[2017-02-02] MEDS ORDERED: LIBRIUM PO PRN ×2 (08:39→13:26)
[2017-02-02] MEDS: LOVENOX SUBCUT SCH (08:40)
[2017-02-02] MEDS: DILAUDID 2 MG/ML SYRINGE IVP PRN ×4 (08:41→19:44)
[2017-02-02] MEDS: PROTONIX IV IVP SCH (08:41)
[2017-02-02] MEDS: ZESTRIL PO SCH (08:41)
[2017-02-02] MEDS: CREON DR 12,000 UNITS CAPSULE PO SCH ×2 (08:41→16:50)
[2017-02-02] MEDS ORDERED: [UNRECOGNIZED DRUG - OTHER] PO SCH (09:00)
[2017-02-02] MEDS ORDERED: PROTEASE PO SCH (09:00)
[2017-02-02] MEDS ORDERED: LIPASE PO SCH (09:00)
[2017-02-02] MEDS ORDERED: AMYLASE PO SCH (09:00)
[2017-02-03] MEDS: ZOFRAN 4 MG/2 ML IVP SCH ×4 (00:30→19:16)
[2017-02-03] MEDS: DILAUDID 2 MG/ML SYRINGE IVP PRN ×4 (00:31→20:47)
[2017-02-03] MEDS: BENADRYL PO PRN ×4 (00:45→20:45)
[2017-02-03] MEDS: SODIUM CHLORIDE 1,000 ML IV SCH ×2 (03:40→17:58)
[2017-02-03 04:42] LABS: BASOPHILS % (AUTO) 0.3 % (0.0-3.0); EOSINOPHILS # (AUTO) 0.8 K/ul (0.0-0.7); EOSINOPHILS % (AUTO) 8.6 % (0.0-7.0); HEMOGLOBIN 14.2 g/dl (12.0-16.0); IMMATURE GRANULOCYTE % (AUTO) 0.2 % (0.0-5.0); LYMPHOCYTES % (AUTO) 21.3 (10.0-50.0); MEAN CORPUSCULAR HEMOGLOBIN 32.8 pg (27.0-31.0); MEAN CORPUSCULAR VOLUME 99.3 fl (81.0-99.0); MONOCYTES # (AUTO) 0.6 K/uL (0.4-2.0); MONOCYTES % (AUTO) 6.6 (0-10); NEUTROPHILS # (AUTO) 5.9 K/ul (2.0-6.9); PLATELET COUNT 165 10^3/uL (140-440); RED BLOOD COUNT 4.33 10^6/ul (4.20-5.40); WHITE BLOOD COUNT 9.42 K/ul (4.6-10.2)
[2017-02-03 05:03] LABS: ALBUMIN 3.2 g/dL (3.4-5.0); ALBUMIN/GLOBULIN RATIO 0.94; ANION GAP 17.6; BILIRUBIN,TOTAL 1.07 mg/dL (0.00-1.20); BUN/CREATININE RATIO 13.43; CREATININE 0.67 mg/dL (0.60-1.30); POTASSIUM 3.6 mmol/L (3.5-5.10); TOTAL PROTEIN 6.6 g/dL (6.4-8.2)
[2017-02-03] MEDS: CREON DR 12,000 UNITS CAPSULE PO SCH ×2 (08:00→16:38)
--- NOTE | 2017-02-03 10:00 | HP ---
SOURCE: The source of this information is prior knowledge of the patient, review of her office records as well as discussion with she; all considered reliable. PATIENT PROFILE: Ms. Meredith is a 36-year-old female resident of [place]; she was cooperative. CHIEF COMPLAINT: "I got pancreatitis again." BRIEF HISTORY OF PRESENT ILLNESS: This will be her second episode of pancreatitis. The first was 07/28/16; she was admitted to [facility] and stayed through 08/01. The second time she was admitted to [facility] on 10/28 and stayed through 11/03. The etiology of the first time was felt to be alcohol use. The second time was felt to possibly be Bactrim. She stayed off alcohol until the day prior to admission. She thought she could get by with drinking a couple and then she started having mid epigastric pain with nausea, one or two episodes of vomiting and no diarrhea. When she presented to the ER, her labs showed a white count of 8, hemoglobin of 14 and her chemistries showed an alkaline phosphatase elevated at 131, AST elevated at 61 and amylase elevated at 183 and lipase elevated at 434. CT imaging was suggestive for pancreatititis but nothing else was seen. Admission was arranged primarily to do with an initial NPO status and pain control. PAST HISTORY: CHILDHOOD: Unremarkable. ALLERGIES/INTOLERANCE: ALLERGY SHOTS - SHE TOOK FROM DR. VELOZ IN 2008; AMOXICILLIN (YEAST INFECTION); CODEINE (VOMITING); MRI (CLAUSTROPHOBIA), PHENTERAMINE (BAD THOUGHTS), Z-PACK (NAUSEA), LATEX, CHOCOLATE, MILK (ALL THREE WITH THROAT ITCHING AND SLIGHT TROUBLE BREATHING) HOME MEDICATIONS: 1. Lisinopril 10 mg one a day 2. Protonix 40 mg one a day 3. Clonidine 0.1 mg twice a day p.r.n. blood pressure greater than 180/100 4. Zofran 4 mg every 4 hours as needed 5. Creon 24,000 units two twice a day HOSPITALIZATIONS/SURGERIES/PROCEDURES: The patient had a LEEP procedure, Dr. Briseno, [facility], 2004; left breast lump removed, Dr. Maynard, [facility], 01/2009; tubal, [facility] , Dr. Garcia, 01/2011. [facility] admission 07/28 through 08/01/16. [facility] admission 10/28 through 11/03/16. Additional procedures: She had an ORIF right ankle, Dr. Kenji Gamble, 09/05/16 and removal of hardware that seemed infected by Dr. Michael Mon, [facility], 10/29/16. HABITS: Smoker, age 22, less than one pack per day stopping May 2005, second-handed smoke for 20 years, stopped 2005. Alcohol has always been about 2 beers about 24 hours and there has been no drug use. SOCIAL HISTORY: She has one child. She is 2005 to her current . She works at [employer] and currently works in a [employer] area. She has only been back to work for a 1 1/2 weeks from all the above. FAMILY HISTORY: Hypertension, paternal grandmother; heart disease in paternal grandfather; diabetes in paternal grandfather; colon cancer in paternal great grandmother; prostate cancer in paternal grandfather; breast cancer material side; an ovary cancer on the paternal side. REVIEW OF SYSTEMS: GENERAL: There has been no falls or fever. INTEGUMENT: No open sores, rash. HEENT: No headache, nasal congestion. NECK: No pain or mass. CHEST: No cough or wheeze. CARDIOVASCULAR: No chest pain, ankle edema. GI: No melena or hematochezia. : No dysuria or frequency. MUSCULOSKELETAL: No red or swollen joints. The right ankle seems less sore every day since the surgery. PSYCHIATRIC: She says she stays somewhat anxious and depressed and would like to go back on Effexor that she has taken in the past. PHYSICAL EXAMINATION: VITALS: Height 5'4", weight 189. Temperature 97.5, pulse 74, respirations 20, BP 126/91. GENERAL: Appropriate for age well-kept white female in no obvious distress. INTEGUMENT: Eyegrounds are pink, nonicteric sclerae. Mucous membranes are moist. No ankle edema. Note: She has a lateral right ankle incision that is well -healed. HEENT: Facial symmetry. Pupils equal, round, extraocular movements intact. NECK: Supple. No visible lymphadenopathy, thyromegaly, mass seen or felt and supple. CHEST: Clear. Equal breath sounds. CARDIOVASCULAR: S1, S2 without murmur or carotid bruit. Distal pulses intact. GI: Soft. Moderately tender in the epigastrium. No rebound or guarding. Obese. No other localized tenderness. : Deferred. MUSCULOSKELETAL: No red swollen joints. Moves all quadrants equal including right ankle. PSYCHIATRIC: Pleasant, personable and intact short and senior care memory. ASSESSMENT/PROBLEM LIST: 0. 36-year-old white female. 1. Allergies/intolerances see above. 2. Procedural history - see above. 3. Family history - see above. 4. 0. 5. Tobacco/nicotine abuse/addiction and secondary exposure. 6. Previous alcohol use - apparently on and off. 7. Hypertension. 8. Degenerative joint disease. 9. Gastroesophageal reflux history. 10. Hyperuricemia. 11. History of abnormal pap that resolved. 12. Excessive compulsive disorder. 13. Migraine history. 14. Allergic rhinitis. 15. History of pancreatitis - first time alcohol, second time possibly Bactrim and now third time alcohol. 16. Anxiety, chronic. 17. Depression, chronic. REASON FOR ADMISSION: # Acute pancreatitis (third episode, first alcohol, second Bactrim - this one likely alcohol) # Abdominal pain # Nausea with vomiting # Nausea # NPO status PLAN: 1. IV fluids, initial NPO. 2. Follow labs daily and order as needed. 3. Medications have been revised as needed; will be changed as needed and primary emphasis now is pain control. 4. Conversation about alcohol use - she doesn't think that she needs any referrals, et cetera for this but we will monitor. 5. Work release won't be needed. 6. At this point discharge planning will be for home unless something changes dramatically. REASON FOR ADMISSION: # Acute pancreatitis - third episode (first alcohol, second Bactrim) - this one likely alcohol. # Abdominal pain. # Nausea with vomiting. # Nausea. MTDD
[2017-02-03] MEDS: LOVENOX SUBCUT SCH (10:37)
[2017-02-03] MEDS: EFFEXOR XR PO SCH (10:37)
[2017-02-03] MEDS: ZESTRIL PO SCH (10:37)
[2017-02-03] MEDS: PROTONIX IV IVP SCH (10:38)
[2017-02-04] MEDS: ZOFRAN 4 MG/2 ML IVP SCH ×4 (00:10→18:20)
[2017-02-04] MEDS: DILAUDID 2 MG/ML SYRINGE IVP PRN ×2 (04:58→11:42)
[2017-02-04 05:24] LABS: BASOPHILS % (AUTO) 0.3 % (0.0-3.0); EOSINOPHILS # (AUTO) 0.7 K/ul (0.0-0.7); EOSINOPHILS % (AUTO) 6.7 % (0.0-7.0); HEMATOCRIT 41.4 % (37.0-47.0); HEMOGLOBIN 13.5 g/dl (12.0-16.0); IMMATURE GRANULOCYTE % (AUTO) 0.4 % (0.0-5.0); LYMPHOCYTES # (AUTO) 1.8 K/uL (0.60-3.4); LYMPHOCYTES % (AUTO) 16.5 (10.0-50.0); MEAN CORPUSCULAR HEMOGLOBIN 32.5 pg (27.0-31.0); MEAN CORPUSCULAR HGB CONC 32.6 (31.8-35.4); MEAN CORPUSCULAR VOLUME 99.8 fl (81.0-99.0); MONOCYTES # (AUTO) 0.6 K/uL (0.4-2.0); MONOCYTES % (AUTO) 5.4 (0-10); NEUTROPHILS # (AUTO) 7.5 K/ul (2.0-6.9); NEUTROPHILS % (AUTO) 70.7; PLATELET COUNT 162 10^3/uL (140-440); RED BLOOD COUNT 4.15 10^6/ul (4.20-5.40); WHITE BLOOD COUNT 10.63 K/ul (4.6-10.2)
[2017-02-04 05:46] LABS: ALBUMIN 2.9 g/dL (3.4-5.0); ALBUMIN/GLOBULIN RATIO 0.88; ANION GAP 18.9; BILIRUBIN,TOTAL 0.75 mg/dL (0.00-1.20); BUN/CREATININE RATIO 10.6; CREATININE 0.66 mg/dL (0.60-1.30); POTASSIUM 3.9 mmol/L (3.5-5.10); TOTAL PROTEIN 6.2 g/dL (6.4-8.2)
[2017-02-04] MEDS: SODIUM CHLORIDE 1,000 ML IV SCH ×2 (07:47→19:58)
[2017-02-04] MEDS: CREON DR 12,000 UNITS CAPSULE PO SCH ×2 (10:00→18:20)
[2017-02-04] MEDS: EFFEXOR XR PO SCH (10:00)
[2017-02-04] MEDS: ZESTRIL PO SCH (10:02)
[2017-02-04] MEDS: LOVENOX SUBCUT SCH (10:02)
[2017-02-04] MEDS: PROTONIX IV IVP SCH (10:04)
[2017-02-05] MEDS ORDERED: ZOFRAN 4 MG/2 ML ONE (00:28)
[2017-02-05] MEDS: ZOFRAN 4 MG/2 ML IVP SCH ×4 (00:28→17:34)
[2017-02-05 05:19] LABS: BASOPHILS % (AUTO) 0.3 % (0.0-3.0); EOSINOPHILS # (AUTO) 0.5 K/ul (0.0-0.7); EOSINOPHILS % (AUTO) 6.9 % (0.0-7.0); HEMATOCRIT 40.5 % (37.0-47.0); HEMOGLOBIN 13.8 g/dl (12.0-16.0); IMMATURE GRANULOCYTE % (AUTO) 0.3 % (0.0-5.0); LYMPHOCYTES # (AUTO) 1.4 K/uL (0.60-3.4); LYMPHOCYTES % (AUTO) 21.7 (10.0-50.0); MEAN CORPUSCULAR HEMOGLOBIN 33.1 pg (27.0-31.0); MEAN CORPUSCULAR HGB CONC 34.1 (31.8-35.4); MEAN CORPUSCULAR VOLUME 97.1 fl (81.0-99.0); MONOCYTES # (AUTO) 0.4 K/uL (0.4-2.0); MONOCYTES % (AUTO) 5.8 (0-10); NEUTROPHILS # (AUTO) 4.2 K/ul (2.0-6.9); PLATELET COUNT 161 10^3/uL (140-440); RED BLOOD COUNT 4.17 10^6/ul (4.20-5.40); WHITE BLOOD COUNT 6.51 K/ul (4.6-10.2)
[2017-02-05 05:39] LABS: ALBUMIN 2.7 g/dL (3.4-5.0); ALBUMIN/GLOBULIN RATIO 0.84; ANION GAP 14.9; BILIRUBIN,TOTAL 0.59 mg/dL (0.00-1.20); BUN/CREATININE RATIO 4.54; CALCIUM 8.1 mg/dL (8.2-10.2); CREATININE 0.66 mg/dL (0.60-1.30); POTASSIUM 3.9 mmol/L (3.5-5.10); TOTAL PROTEIN 5.9 g/dL (6.4-8.2)
[2017-02-05] MEDS: SODIUM CHLORIDE 1,000 ML IV SCH (09:14)
[2017-02-05] MEDS: CREON DR 12,000 UNITS CAPSULE PO SCH ×2 (11:05→17:34)
[2017-02-05] MEDS: LOVENOX SUBCUT SCH (11:06)
[2017-02-05] MEDS: EFFEXOR XR PO SCH (11:06)
[2017-02-05] MEDS: PROTONIX IV IVP SCH (11:06)
[2017-02-05] MEDS: ZESTRIL PO SCH (11:07)
[2017-02-05] MEDS: DILAUDID 2 MG/ML SYRINGE IVP PRN (13:59)
[2017-02-05 21:47] VITALS: BP 123/84; TEMP 97.8
--- NOTE | 2017-02-09 15:25 | PN ---
DATE OF SERVICE: 02/03/17 CHIEF COMPLAINT: "My stomach pain." SUBJECTIVE: Ms. Meredith was admitted through the ER with nausea, vomiting and abdominal pain. Her lipase, amylase was elevated making an impression that she had another episode of pancreatitis. This is the third episode. The first and third were related to alcohol and the second was thought to be related to Bactrim. Fortunately her lipase was 434, amylase 183, hemodynamically stable she was. Her CT showed nothing dramatic. She is actually taking some ice chips today, has not had any vomiting. She is resting with her pain medicine and was able to sleep last night. She has no cough or shortness of breath. OBJECTIVE: GENERAL: No obvious distress. CHEST: Clear. CARDIOVASCULAR: S1, S2 without murmur or peripheral edema. GI: Tender in the mid epigastrium. No rebound or guarding but otherwise soft. Bowel sounds present. LABS/X-RAYS: Chemistry is unchanged; alkaline phosphatase slightly elevated. White count 9.42 and stable. Hemoglobin 14 and stable. ASSESSMENT: # Acute pancreatitis - third episode alcohol related # NPO or limited dietary status - IV supported # Narcotic pain control - IV PLAN: 1. Medicines reviewed and continued. 2. Labs reviewed and needs amylase/lipase tomorrow (missed today) 3. Activity as tolerated 4. Encouraged to do some walking 5. Discharge planning discussed; anticipation is for home in a day or two. MTDD
--- NOTE | 2017-02-23 14:39 | PN ---
DATE OF SERVICE: 02/04/17 CHIEF COMPLAINT: "My pancreas is hurting." SUBJECTIVE: She has had two previous episodes of pancreatitis; the first was felt to be related to alcohol; the second related to Bactrim. She had a little alcohol before this one developed abdominal pain, nausea, vomiting, loose stools and presented to the ER. Imaging was non acute. Amylase, lipase were slightly elevated but it was felt she needed to be admitted for pain control and preclude dehydration. She has had a good day with no nausea, vomiting, diarrhea and less abdominal pain. A couple of hours ago we let her have soup with crackles. OBJECTIVE: V/S: Temperature 97, pulse 83, BP 148/93, respirations 16. GENERAL: No acute distress. CHEST: Clear. GI: Tender in the epigastrium with no rebound or guarding. Bowel sounds are present. LABS/X-RAYS: White count 10 compared to that range, hemoglobin 13.5 and similar. Chemistries show bicarb 17, glucose 60, calcium 8, total protein/albumin and alkaline phosphatase high at 134. Amylase 61, lipase 20 and ranges for the abnormalities were all stable. ASSESSMENT: # ACUTE PANCREATITIS # ABDOMINAL PAIN # NAUSEA WITH VOMITING # NAUSEA # DIARRHEA # NPO STATUS PLAN: 1. Advance diet 2. Preliminarily considering discharge tomorrow. MTDD
--- NOTE | 2017-02-23 14:56 | DS ---
DATE OF SERVICE: 02/05/2017 PATIENT PROFILE: Ms. Meredith is a 36-year-old female resident of [place]; she was cooperative. CHIEF COMPLAINT: "I got pancreatitis again." BRIEF HISTORY OF PRESENT ILLNESS: This will be her second episode of pancreatitis. The first was 07/28/16; she was admitted to [facility] and stayed through 08/01. The second time she was admitted to [facility] on 10/28 and stayed through 11/03. The etiology of the first time was felt to be alcohol use. The second time was felt to possibly be Bactrim. She stayed off alcohol until the day prior to admission. She thought she could get by with drinking a couple and then she started having mid epigastric pain with nausea, one or two episodes of vomiting and no diarrhea. When she presented to the ER, her labs showed a white count of 8, hemoglobin of 14 and her chemistries showed an alkaline phosphatase elevated at 131, AST elevated at 61 and amylase elevated at 183 and lipase elevated at 434. CT imaging was suggestive for pancreatititis but nothing else was seen. Admission was arranged primarily to do with an initial NPO status and pain control. PAST HISTORY: CHILDHOOD: Unremarkable. ALLERGIES/INTOLERANCE: ALLERGY SHOTS - SHE TOOK FROM DR. VELOZ IN 2008; AMOXICILLIN (YEAST INFECTION); CODEINE (VOMITING); MRI (CLAUSTROPHOBIA), PHENTERAMINE (BAD THOUGHTS), Z-PACK (NAUSEA), LATEX, CHOCOLATE, MILK (ALL THREE WITH THROAT ITCHING AND SLIGHT TROUBLE BREATHING) HOME MEDICATIONS: 1. Lisinopril 10 mg one a day 2. Protonix 40 mg one a day 3. Clonidine 0.1 mg twice a day p.r.n. blood pressure greater than 180/100 4. Zofran 4 mg every 4 hours as needed 5. Creon 24,000 units two twice a day HOSPITALIZATIONS/SURGERIES/PROCEDURES: The patient had a LEEP procedure, Dr. Briseno, [facility], 2004; left breast lump removed, Dr. Maynard, [facility], 01/2009; tubal, [facility] , Dr. Garcia, 01/2011. [facility] admission 07/28 through 08/01/16. [facility] admission 10/28 through 11/03/16. Additional procedures: She had an ORIF right ankle, Dr. Kenji Gamble, 09/05/16 and removal of hardware that seemed infected by Dr. Michael Mon, [facility], 10/29/16. HABITS: Smoker, age 22, less than one pack per day stopping May 2005, second-handed smoke for 20 years, stopped 2005. Alcohol has always been about 2 beers about 24 hours and there has been no drug use. SOCIAL HISTORY: She has one child. She is 2005 to her current . 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 She has only been back to work for a 1 1/2 weeks from all the above. FAMILY HISTORY: Hypertension, paternal grandmother; heart disease in paternal grandfather; diabetes in paternal grandfather; colon cancer in paternal great grandmother; prostate cancer in paternal grandfather; breast cancer material side; an ovary cancer on the paternal side. REVIEW OF SYSTEMS: GENERAL: There has been no falls or fever. INTEGUMENT: No open sores, rash. HEENT: No headache, nasal congestion. NECK: No pain or mass. CHEST: No cough or wheeze. CARDIOVASCULAR: No chest pain, ankle edema. GI: No melena or hematochezia. : No dysuria or frequency. MUSCULOSKELETAL: No red or swollen joints. The right ankle seems less sore every day since the surgery. PSYCHIATRIC: She says she stays somewhat anxious and depressed and would like to go back on Effexor that she has taken in the past. PHYSICAL EXAMINATION: VITALS: Height 5'4", weight 189. Temperature 97.5, pulse 74, respirations 20, BP 126/91. GENERAL: Appropriate for age well-kept white female in no obvious distress. INTEGUMENT: Eyegrounds are pink, nonicteric sclerae. Mucous membranes are moist. No ankle edema. Note: She has a lateral right ankle incision that is well -healed. HEENT: Facial symmetry. Pupils equal, round, extraocular movements intact. NECK: Supple. No visible lymphadenopathy, thyromegaly, mass seen or felt and supple. CHEST: Clear. Equal breath sounds. CARDIOVASCULAR: S1, S2 without murmur or carotid bruit. Distal pulses intact. GI: Soft. Moderately tender in the epigastrium. No rebound or guarding. Obese. No other localized tenderness. : Deferred. MUSCULOSKELETAL: No red swollen joints. Moves all quadrants equal including right ankle. PSYCHIATRIC: Pleasant, personable and intact short and fci memory. ASSESSMENT/PROBLEM LIST: 0. 36-year-old white female. 1. Allergies/intolerances see above. 2. Procedural history - see above. 3. Family history - see above. 4. 0. 5. Tobacco/nicotine abuse/addiction and secondary exposure. 6. Previous alcohol use - apparently on and off. 7. Hypertension. 8. Degenerative joint disease. 9. Gastroesophageal reflux history. 10. Hyperuricemia. 11. History of abnormal pap that resolved. 12. Excessive compulsive disorder. 13. Migraine history. 14. Allergic rhinitis. 15. History of pancreatitis - first time alcohol, second time possibly Bactrim and now third time alcohol. 16. Anxiety, chronic. 17. Depression, chronic. REASON FOR ADMISSION: # Acute pancreatitis (third episode, first alcohol, second Bactrim - this one likely alcohol) # Abdominal pain # Nausea with vomiting # Nausea # NPO status HOSPITAL COURSE: Her hospital course was fairly unremarkable; she had received IV narcotics for pain control, was NPO for several days giving her bowel rest in time for her epigastric/pancreatic pain to improve. She was then transitioned to oral pain medication. Her diet was gradually introduced, liquids and low fat and with a minimal amount of discomfort was tolerated. There was nausea that required antemetics. All of this included the treatment of fluids to preclude dehydration. She had no issues related to alcohol withdrawal. She did want to go back on Effexor for anxiety and depression and we started that; this seemed to be well tolerated. White count started 8 and remained in that range. Hemoglobin 14.7, lowest was 13.5 and there were no signs of bleeding. MCV was occasionally elevated. Chemistries showed only an initial AST of 61 which dropped to normal. Alkaline phosphatase 131 and stayed in that range. Albumin and total protein were slightly low and amylase started at 183 and lipase 434 and promptly dropped to normal by the first at 6120 and 5027 later. test was negative. We used a CT upon admission as the only radiograph of her pancreas; there is fatty liver and diffuse pancreatitis. She was agreeable to outpatient followup. DISCHARGE ASSESSMENT/PROBLEM LIST (CHANGED FROM ADMISSION): # Acute pancreatitis (third episode caused by alcohol use; first episode alcohol, second episode question Bactrim) # Abdominal pain - associated with # Nausea and vomiting - associated with # Nausea - associated with # NPO status - briefly # Anxiety - chronic # Depression - chronic # Alcohol use PLAN: 1. Discharge 2. Medications: a) Tylenol 650 mg every four hours as needed for mild pain (hold if using [place]) b) Librium 50 mg every eight hours as needed c) Catapres 0.1 three times a day as needed for elevations of blood pressure greater than 180/100 d) Benadryl 25 mg every four hours as needed for allergy symptoms e) Zestril 10 mg once a day f) Pancrease, lipase, creon 12,000 units four capsules twice a day with meal g) Effexor 75 mg SR once a day #30 with two refills h) Protonix 40 mg once a day #30 no refill i) [place] 7.5 mg 1/2 to 1 every four hours as needed for more severe pain # 24, no refill j) Zofran 4 mg one every six hours as needed for nausea #8 no refill 3. Diet: a) Low fat b) No alcohol 4. Activity: a) Gradually increase as able b) May return to work 02/09/16 (if needs note she can stop by the office tomorrow) PLAN: 1. The office will arrange followup in three to four days if any issues. PROGNOSIS: Guarded. CONDITION: Stable, improved. MTDD
== END 2017-02-05 22:30 | disposition home or self-care (01) | DRG 440 ==
LOC: ED 02:40 → MEDSURG B 05:59
PROVIDERS: ADMIT Family Medicine; ATTEND Family Medicine
DX: K85.20 Alcohol induced acute pancreatitis without necrosis or infection (principal); I10 Essential (primary) hypertension; F41.8 Other specified anxiety disorders; Z72.89 Other problems related to lifestyle; Z79.899 Other long term (current) drug therapy
CPT/HCPCS: 36415; 80053; 82150; 83690; 84703; 85025; 96374; 96375; 97802; 99285

== ENCOUNTER 2018-04-30 04:20 | Emergency (ER) ==
[2018-04-30 04:29] VITALS: BP 130/91; TEMP 98.9; BMI 32.5
--- NOTE | 2018-04-30 04:30 | ED.PDOC ---
General ED Provider: Dr. ROJAS CEJA Chief Complaint: Ankle Pain/Injury Stated Complaint: Patient is a 38 year old female who comes to the ER with history of having slipped on wet deck and fell, twisted right ankle Time Seen by Physician: 04:30 Mode of Arrival: Wheelchair Information Source: Patient Exam Limitations: No limitations Primary Care Provider: ASHANTI PICKENS Nursing and Triage Documentation Reviewed and Agree: Yes Does patient meet sepsis criteria?: No System Inflammatory Response Syndrome: Pulse >90 BPM Sepsis Protocol: For patient's 13 years and over: Temp is 96.8 and below OR 101 and greater Pulse >90 BPM Resp >20/minute Acutely Altered Mental Status Are patient's symptoms suggestive of a new infection, such as: -Pneumonia -Skin, Soft Tissue -Endocarditis -UTI -Bone, Joint Infection -Implantable Device -Acute Abdominal Infection -Wound Infection -Meningitis -Blood Stream Catheter Infection -Unknown Musculoskeletal Complaint Exam - Ankle/Foot Complaint/Exam Location of Injury: Reports: Right, Ankle Mechanism of Injury: Reports: Trauma (from a ground fall from slipping ) Onset/Duration: Just prior to arrival. Symptoms Are: Reports: Still present Onset of Pain: Reports: Immediate Initial Severity: Severe Current Severity: Moderate Location: Reports: Discrete (lateral malleolus ) Character: Reports: Aching Aggravating: Reports: Movement, Weight bearing, Prolonged standing Associated Signs and Symptoms: Reports: Swelling Related History: Reports: Similar episode Gout Risk Factors: Denies: >40 years old, Male, Diabetes Related Surgical History: Reports: Right, Ankle Lower Extremity Findings: Present: Swelling, Abnormal contour, Tenderness, Limited range of motion. Absent: Ligamentous instability, Laceration, Other joint pain, Foreign body Achilles Tendon Abnormality: No Tenderness: Present: Lateral malleolus Limited Range of Motion: Present: Dorsiflexion, Plantarflexion Ankle/Foot Picture: 1 - tenderness and swelling Differential Diagnosis: Closed Fracture, Sprain, Strain Review of Systems - Review Of Systems Constitutional: Reports: No symptoms Eyes: Reports: No symptoms Ears, Nose, Mouth, Throat: Reports: No symptoms Respiratory: Reports: No symptoms Cardiac: Reports: No symptoms GI: Reports: No symptoms : Reports: No symptoms Musculoskeletal: Reports: Joint pain (right ankle ), Joint swelling (Lateral Malleolus ) Skin: Reports: No symptoms Neurological: Reports: No symptoms Endocrine: Reports: No symptoms Hematologic/Lymphatic: Reports: No symptoms All Other Systems: Reviewed and Negative Past Medical History - Past Medical History Previously Healthy: No Endocrine: Reports: None Cardiovascular: Reports: Hypertension Respiratory: Reports: None Hematological: Reports: None Gastrointestinal: Reports: Pancreatitis Genitourinary: Reports: None Neuro/Psych: Reports: None Musculoskeletal: Reports: Joint Pain (right ankle fracture) Cancer: Reports: None Last Menstrual Period: 2 days - Surgical History General Surgical History: Reports: Tubal ligation, Orthopedic (rt leg surgery, right ankle surgery with pin placement one year ago removed due to infection.), Other (cyst removed from the left breast.) - Family History Family History: Reports: Unknown - Social History Smoking Status: Former smoker Hx Substance Use: No Alcohol Screening: Heavy - Immunizations Tetanus Shot up to Date: Yes Physical Exam - Physical Exam Appearance: Well-appearing, No pain distress, Well-nourished Eyes: ANNE MARIE, EOMI, Conjunctiva clear ENT: Ears normal, Nose normal, Oropharynx normal Respiratory: Airway patent, Breath sounds clear, Breath sounds equal, Respirations nonlabored Cardiovascular: RRR, Pulses normal, No rub, No murmur GI/: Soft, Nontender, No masses, Bowel sounds normal, No Organomegaly Musculoskeletal: Normal strength, No calf tenderness, Limited ROM, Edema Skin: Warm, Dry, Normal color Neurological: Sensation intact, Motor intact, Reflexes intact, Cranial nerves intact, Alert, Oriented Psychiatric: Affect appropriate, Mood appropriate Interpretation - Radiology Interpretation Radiology Interpretation By: ED Physician Radiology Results: Positive (slightly displaced distal fibular fractures.) Exam Interpreted: Other (right ankle x ray ) Critical Care Note - Critical Care Note Total Time (mins): 0 Course - Course Orders, Labs, Meds: Orders Category Date Time Status ED APPLY ICE AFFECTED AREA .ONCE EMERGENCY 04/30/18 04:29 Active Splint [ED SPLINT APPLICATION] .ONCE EMERGENCY 04/30/18 05:17 Active Ibuprofen [Motrin] MEDS 04/30/18 04:36 Discontinued 800 mg PO ONCE STA ANKLE, RIGHT MIN 3 VIEWS Stat RADS 04/30/18 04:29 Completed Medications Discontinued Medications Generic Name Dose Route Start Last Admin Trade Name Freq PRN Reason Stop Dose Admin Ibuprofen 800 mg 04/30/18 04:36 04/30/18 05:03 Motrin PO 04/30/18 04:37 800 mg ONCE STA Administration Vital Signs: Temp Pulse Resp BP Pulse Ox 04/30/18 04:22 98.9 F 119 H 20 130/91 H 98 Departure - Departure Time of Disposition: 04:58 Disposition: HOME SELF-CARE Discharge Problem: Fracture of distal end of right fibula Qualifiers: Encounter type: initial encounter Fracture type: closed Fracture morphology: unspecified fracture morphology Qualified Code(s): S82.831A - Other fracture of upper and lower end of right fibula, initial encounter for closed fracture Instructions: Ankle Fracture (ED) Condition: Fair Pt referred to PMD for follow-up: Yes IPMP verified?: No Additional Instructions: Keep foot elevated Follow up with your Orthopedics Doctor in 1-2 days Take medications as prescribed. Follow up with PCP in 3 days Prescriptions: Hydrocodone Bit/Acetaminophen [[place] 5-325] 1 each PO Q6HR PRN #15 tablet PRN Reason: severe pain Ibuprofen [Motrin] 600 mg PO Q6H PRN #30 tablet PRN Reason: Analgesia Allergies/Adverse Reactions: Allergies amoxicillin [From Amoxil] Adverse Reaction (Verified 04/30/18 04:32) azithromycin Adverse Reaction (Verified 02/02/17 02:46) Rash codeine Adverse Reaction (Verified 02/02/17 02:46) Vomiting Latex, Natural Rubber Adverse Reaction (Verified 02/02/17 02:46) Difficulty Breathing If prolonged, states "has trouble breathing". If short period, gets a rash. Sulfa (Sulfonamide Antibiotics) Adverse Reaction (Verified 04/30/18 04:32) Home Medications: Ambulatory Orders Pantoprazole Sodium [Protonix] 40 mg PO QDAC #30 tablet. 02/05/17 Hydrocodone Bit/Acetaminophen [[place] 5-325] 1 each PO Q6HR PRN #15 tablet Ibuprofen [Motrin] 600 mg PO Q6H PRN #30 tablet 04/30/18 Lisinopril [Zestril] 10 mg PO DAILY 04/30/18 Disposition Discussed With: Patient, Family
[2018-04-30] MEDS ORDERED: MOTRIN PO STA (04:36)
--- NOTE | 2018-04-30 05:05 | DI ---
EXAM: Right ankle three views HISTORY: Fall COMPARISON: Right ankle 08/27/2016 FINDINGS: There is moderate lateral soft tissue swelling. Deformity from old healed fibular fracture s noted. There is an acute transverse fracture involving the lateral malleolus at the level of the mirella int. IMPRESSION: Nondisplaced lateral malleolar fracture with adjacent soft tissue swelling
== END 2018-04-30 05:33 | disposition home or self-care (01) ==
LOC: ED 04:20
DX: S82.64XA Nondisplaced fracture of lateral malleolus of right fibula, initial encounter for closed fracture (principal); W01.0XXA Fall on same level from slipping, tripping and stumbling without subsequent striking against object, initial encounter
CPT/HCPCS: 99282